=== PATIENT | female | born 1955 | race African-American/Black ===

== ENCOUNTER 2024-06-26 16:25 | Inpatient (IN) | payer OTHER, MEDICAID ==
[~2024-06-26] VITALS: Ht 165.1 cm; Wt 73.6 kg
[2024-06-26 20:27] VITALS: BP 109/46; PULSE 67; RESP 18; TEMP 98.2; O2SAT 99
[2024-06-26 21:00] VITALS: BP 109/46; PULSE 67; RESP 18; TEMP 98.2; O2SAT 99
[2024-06-26] MEDS ORDERED: NITROGLYCERIN 0.4 MG SL TAB SL PRN (21:30)
[2024-06-26] MEDS: SOD CHL 0.45% 1,000 ML IV SCH (21:30)
[2024-06-26] MEDS ORDERED: HYDROMORPHONE HCL 1 MG/ML INJ IV PRN (21:30)
[2024-06-26] MEDS ORDERED: MORPHINE SULFATE INJ 2 MG/ml SYRG IV PRN (21:30)
[2024-06-26 21:39] VITALS: PULSE 67; RESP 18; O2SAT 99
[2024-06-26] MEDS ORDERED: ERGO1CAP12 (22:00)
[2024-06-26] MEDS ORDERED: GABA-339 (22:00)
[2024-06-26] MEDS ORDERED: ATOR10TA52 PO (22:00)
[2024-06-26] MEDS ORDERED: OXYC-963 (22:00)
[2024-06-26 22:37] LABS: Basophils # (auto) 0 10 ^3/uL (0-0.2); Basophils % (auto) 0.5 % (0.0-2.0); Eosinophils # (auto) 0.1 10 ^3/uL (0-0.8); Eosinophils % (auto) 0.9 % (0.0-7.0); Hematocrit 46.5 % (36.0-46.0); Hemoglobin 15.1 g/dL (12.2-16.2); Lymphocytes # (auto) 2.2 10 ^3/uL (0.4-5.4); Lymphocytes % (auto) 35.1 % (10.0-50.0); Mean Corpuscular Hemoglobin 30.9 pg (28.0-32.0); Mean Corpuscular Hgb Conc. 32.4 g/dL (32.0-36.0); Mean Corpuscular Volume 95.3 fL (80.0-100.0); Monocytes # (auto) 0.6 10 ^3/uL (0-1.3); Monocytes % (auto) 9.1 % (0.0-12.0); Neutrophils # (auto) 3.4 10 ^3/uL (1.6-8.6); Neutrophils % (auto) 54.4 % (37.0-80.0); Nucleated Red Blood Cells % 0.1 %; Platelet Count (auto) 275 10^3/uL (140-450); Red Blood Cells 4.88 10^6/uL (4.0-5.20); Red Cell Distribution Width 15.4 % (11.8-14.3); White Blood Cell 6.2 10^3/uL (4.4-10.8)
[2024-06-26 22:48] LABS: Partial Thromboplastin Time 30.6 SEC (24.5-34.5); Prothrombin Time 10.6 sec (9.3-11.8)
[2024-06-26 23:05] LABS: Alanine Aminotransferase 14 U/L (7-40); Albumin 4.6 g/dL (3.2-4.8); Alkaline Phosphatase 88 U/L (46-116); Amylase 42 U/L (30-118); Anion Gap 8 (5-15); BUN/Creatinine Ratio 13.2 (10.0-20.0); Blood Urea Nitrogen 9 mg/dL (9-23); Calcium 9.9 mg/dL (8.7-10.4); Carbon Dioxide 25 mmol/L (20-31); Chloride 106 mmol/L (98-107); Glucose 86 mg/dL (74-106); Sodium 139 mmol/L (136-145)
[2024-06-26 23:06] LABS: Bilirubin, Total 0.6 mg/dL (0.2-1.0); Total Protein 7.1 g/dL (5.7-8.2)
[2024-06-26 23:07] LABS: Aspartate Aminotransferase 8 U/L (13-40); Potassium 3.4 mmol/L (3.5-5.1)
--- NOTE | 2024-06-26 23:08 | DVH ---
INDICATION: abdominal pain TECHNIQUE: Multiple real-time sonographic images were obtained of the right upper quadrant. COMPARISON: None FINDINGS: The liver is normal in size measuring 16.8 cm and demonstrates homogeneous echogenicity without focal mass lesion. There is no intrahepatic or extrahepatic ductal dilatation. The common duct measures 4.6 mm. Multiple mobile gallstones are noted in the gallbladder. The gallbladder wall measures 2.3 mm and is within normal limits. The right kidney measures 10.5 cm and is normal in size, contour, and echogenicity. No hydronephrosis . Visualized pancreas appears unremarkable. IMPRESSION: Cholelithiasis without evidence of acute cholecystitis.
[2024-06-26] MEDS: HYDROMORPHONE HCL 1 MG/ML INJ IV PRN (23:45)
[2024-06-26] MEDS: SUCRALFATE 1 GM TAB PO SCH (23:48)
[2024-06-26] MEDS: cefTRIAXone 1GM/50ML D5W 50 ML IV SCH (23:48)
--- NOTE | 2024-06-27 | DVHHP2 ---
Admitting Diagnosis: Intermittent RUQ abdominal pains- Nausea and poor appetite History of Present Illness 69-year-old late middle-aged female with known history of cholelithiasis, Diverticulosis, Hypertension, hypercholesterolemia and AAA- S/p stent placement is admitted for further eval and management of recurrent multisite abdominal pains which starts from RUQ/epigastric area gnawing type 5 to 7/10 attended with nausea, Poor appetite, nausea, pains gets worse after meal intake with abdominal distention but denies melena or hematochezia. Denies intake of nonsteroidals, dark coffee But admits to have been intake citric acid containing foods like oranges. No known Prior history of peptic ulcer disease melena or rectal bleeding. Besides this she reports pains in LLQ area along with recurrent constipation. She expresses a concern about Acute cholecystitis/diverticulitis foe she has known history of cholelithiasis and diverticulosis. She denies fever chills jaundice, passing dark urine or kelle- colored stools She admits to have been smoking cigarettes-one pack a day for many years She has noticed spotting of blood from internal hemorrhoids. In addition to all above, she reports to her symptoms of pains edema, erythema affecting dorsum of L forefoot. She reports are sharp shooting pains around bases of L first and second toes accompanied by reduced joint movements from local pains. She reports to have known history of gout. She denies drinking alcohol in last several days. Past Medical History Past medical history records: Reviewed Cardiovascular history: Known history of hypertension, no history of acute OK or CAD AAA-status post surgical repair at [facility] in Jul 2023 Respiratory history: Prolonged tobacco use and COPD Gastrointestinal history: GE reflux, chronic gastritis Genitourinary history: No history of renal insufficiency Endocrine history: Hypercholesterolemia Neurology history: No history of CVA Musculoskeletal history: Arthritis of bilateral lower extremity History of gouty arthritis, Chronic back pains-DJD of LS spines Hemato-oncology history: History of chronic anemia, B12 deficiency Psychiatric history: Depression makes with anxiety Past Surgical History Abdominal aortic aneurysm repair Social History Homemaker, , lives by herself in [place] History of smoking: Cigarettes: Active smoker History of smoking E cigarettes: Denies E cigarette smoking History of smoking marijuana: denies marijuana smoking History of drinking alcohol: Denies alcohol abuse History of substance abuse:Denies substance abuse Patient Family History: Patient reports no known family medical history. Allergies: Coded Allergies: NO KNOWN ALLERGIES (Unverified , 06/26/24) Home Meds Reported Medications Atorvastatin Calcium (ATORVASTATIN CALCIUM) 10 Mg Tab, 1 TAB PO 06/26/24 Oxycodone W/ Acetaminophen (Oxycodone/Acetaminophen 10-300 mg) 1 Tab Tab 06/26/24 Gabapentin (Gabapentin) 600 Mg Tab 06/26/24 Ergocalciferol (Vitamin D) 50,000 Unit Cap, 1 06/26/24 Current Medications Current Medications Medications (Trade) Dose Ordered Sig/Tamara Route PRN Reason Start Time Stop Time Status Last Admin Atorvastatin Calcium (Lipitor) 10 mg DAILY@DINNER PO 06/27/24 17:30 06/27/24 17:35 Hydrocortisone Sodium Succinate (Solu-CORTEF INJECTION) 50 mg Q8HR IV 06/27/24 20:30 06/27/24 21:50 DC 06/27/24 20:42 Ketorolac Tromethamine (Toradol Injection) 15 mg Q6HPRN PRN IV SEVERE PAIN (7-10 PAIN SCALE) 06/27/24 20:45 06/27/24 22:58 DC Potassium Chloride 100 ml @ 50 mls/hr BID IV 06/27/24 22:00 06/27/24 21:53 DC Hydrocortisone Sodium Succinate (Solu-CORTEF INJECTION) 50 mg Q8HR IV 06/28/24 06:00 06/28/24 13:44 Ceftriaxone Sodium 50 ml @ 100 mls/hr 1100,2300 IV 06/27/24 23:00 06/28/24 10:12 Potassium Chloride 100 ml @ 50 mls/hr 1130,2330 IV 06/27/24 23:30 06/28/24 11:18 Ketorolac Tromethamine (Toradol Injection) 15 mg Q6HPRN PRN IV MILD PAIN (1-3 PAIN SCALE) 06/27/24 23:00 07/02/24 20:44 06/28/24 13:43 Sodium Chloride 1,000 ml @ 40 mls/hr Q24H IV 06/28/24 16:30 UNV Valsartan (Diovan) 160 mg DAILY@BREAKFAST PO 06/29/24 07:30 UNV Hydrochlorothiazide (hydroCHLOROthiazide TABLET) 12.5 mg DAILY PO 06/29/24 10:00 UNV Clonidine HCl (Catapres Tablet) UD PRN PO SBP>160 06/28/24 16:30 UNV Valsartan (Diovan) 160 mg DAILY@DINNER PO 06/28/24 18:00 UNV Review of Systems Constitutional: Reports easy tiredness, denies fever chills weight loss HEENT: Denies headache/conjunctival/ENT pains or congestion, Denies hoarse voice, hearing or visual deficit Neck: Denies cervical spine local/radicular pains, denies goiters/stridor Denies stiffness spasms, reduced ROM, RS: Denies chest congestion, cough, wheezing, SOB, pleuritic chest pains CVS: Denies angina, palpitation, SOB, edema, orthopnea, PND GI: Reports epigastric/RUQ LLQ abdominal pains, tenderness,loss of appetite, N/V/D, Denies melena, GI bleeding,constipation, : Denies dysuria, flank pains, frequency, hematuria, Denies passing foul odor/cloudy turbid urine, nocturia MS: Reports chronic back pains, spasms, stiffness, radicular pains Denies generalized myalgias/muscle weakness EXTs: Reports edema/pain tenderness, erythema affecting dorsum of L forefoot, No open wounds, discoloration, radicular pains NEURO: Denies hypersomnolence, confused mental status, Denies focal weakness or seizures/tremors/myoclonic jerks SKIN: Denies rashes or open ulcerated wound ENDOCRINE: Denies polyuria, polydipsia, denies intolerance to heat and cold HEM/LYMPH: Denies easy tiredness, bruising, lymphadenopathy ALLERGY: Denies allergic reactions Psychiatry: Reports anxiety or depression without suicidal ideation disorder Otherwise the Review of Systems is Negative as per History & Physical Interview: Yes Vital Signs Vital Signs Date Time Temp Pulse Resp B/P (MAP) Pulse Ox O2 Delivery O2 Flow Rate FiO2 06/28/24 16:06 80 17 150/80 06/28/24 13:00 98.0 90 98.0 06/28/24 08:00 Room Air* 0 21 Physical Exam Vital Signs Date Time Temp Pulse Resp B/P (MAP) Pulse Ox O2 Delivery O2 Flow Rate FiO2 06/26/24 20:27 98.2 67 18 109/46 (67) 94 Room air 21 06/26/24 23:45 67 18 127/77 (94) 93 Room air 21 General appearance: Well-developed, mal-nourished late middle-aged female Reports to have abdominal pains, nausea, generally weak NAD Awake alert oriented x3 no respiratory distress Head: Normocephalic nontraumatic Eyes: EOMI, YOLANDE, sclera nonicteric, conjunctive- pale ENT: No congestion, NSL bilateral symmetrical, oral mucosa dry Neck: Supple, carotid upstroke +2, trachea midline, JVD-3 cm, C spine- Full ROM No thyroid or lymph node , no use of sternomastoid muscle Chest: Bilateral symmetrical expansions, No costochondral tenderness Breasts: I exam - Bilateral symmetrical, Pexam - deferred Lungs: clear breath sounds all over except reduced at bases CVS: PMI-1 cm medial to L MCL in fifth ICS , S1- S2 NSR no S3 GI: Abdomen soft, non-obese, bowel sounds normoactive RUQ/epigastric/LLQ tenderness, no rebound tenderness No hepatosplenomegaly, no mass no hernia , : No CVA tenderness, no bladder mass palpable, genitalia-NE SKIN: Turgor dry, color pink, no rash, no icterus, No varicosity, no ulcers or wounds EXTs: L foot- edema_2, erythema, pain tenderness over forefoot Affecting bases of first and second toe distal pulses +1 capillary refill <2 seconds, No open wounds JOINTS; Reduced range of motion at major joints BACK: Lumbosacral paraspinal muscle tenderness, LYMPH NODES: No cervical, axillary or inguinal lymph nodes Neuro: Awake alert oriented 4, coherent, all cognitives- intact No pronator drift, no focal motor deficit, No focal sensory deficit, DTR +2, gait steady PSYCH: Affect mildly depressed-denies suicidal ideation Results Labs Test 06/27/24 05:43 06/27/24 02:05 06/26/24 22:10 Range/Units Erythrocyte Sedimentation Rate 8 0-20 mm/hr Sodium Level 140 136-145 mmol/L Potassium Level 3.4 L 3.5-5.1 mmol/L Chloride Level 105 98-107 mmol/L Carbon Dioxide Level 27 20-31 mmol/L Anion Gap 8 5-15 Blood Urea Nitrogen 10 9-23 mg/dL Creatinine 0.64 0.550-1.02 mg/dL Glomerular Filtration Rate Calc 95 >90 mL/min BUN/Creatinine Ratio 15.6 10.0-20.0 Serum Glucose 88 74-106 mg/dL Hemoglobin A1c 5.3 <5.7 % A1C Uric Acid 7.7 3.1-7.8 mg/dL Calcium Level 9.6 8.7-10.4 mg/dL Phosphorus Level 4.0 2.4-5.1 mg/dL Magnesium Level 2.0 1.6-2.6 mg/dL Total Bilirubin 0.8 0.2-1.0 mg/dL Aspartate Amino Transferase (AST) < 8 L 13-40 U/L Alanine Aminotransferase (ALT) 15 7-40 U/L Alkaline Phosphatase 86 46-116 U/L Total Protein 6.9 5.7-8.2 g/dL Albumin 4.5 3.2-4.8 g/dL Triglycerides Level 137 < 150 mg/dL Cholesterol Level 159 < 200 mg/dL LDL Cholesterol 77 < 100 mg/dL HDL Cholesterol 61 H 40-59 mg/dL Vitamin B12 Level 279 211-911 pg/mL Urine Color Light-yellow Yellow Urine Clarity Clear Clear Urine pH 5.5 5.0-9.0 Urine Specific [place] 1.010 1.001-1.035 Urine Protein Negative Negative Urine Ketones Negative Negative Urine Blood Negative Negative /uL Urine Nitrite Negative Negative Urine Bilirubin Negative Negative Urine Urobilinogen Normal Negative mg/dL Urine Leukocyte Esterase Negative Negative /uL Urine RBC <1 0 - 4 /hpf Urine Microscopic WBC 4 0-5 /HPF Urine Squamous Epithelial Cells Few <5 /hpf Urine Bacteria Few H None Seen /hpf Urine Glucose Normal Normal mg/dL White Blood Count 6.2 4.4-10.8 10^3/uL Red Blood Count 4.88 4.0-5.20 10^6/uL Hemoglobin 15.1 12.2-16.2 g/dL Hematocrit 46.5 H 36.0-46.0 % Mean Corpuscular Volume 95.3 80.0-100.0 fL Mean Corpuscular Hemoglobin 30.9 28.0-32.0 pg Mean Corpuscular Hemoglobin Concent 32.4 32.0-36.0 g/dL Red Cell Distribution Width 15.4 H 11.8-14.3 % Platelet Count 275 140-450 10^3/uL Mean Platelet Volume 6.8 L 6.9-10.8 fL Neutrophils (%) (Auto) 54.4 37.0-80.0 % Lymphocytes (%) (Auto) 35.1 10.0-50.0 % Monocytes (%) (Auto) 9.1 0.0-12.0 % Eosinophils (%) (Auto) 0.9 0.0-7.0 % Basophils (%) (Auto) 0.5 0.0-2.0 % Neutrophils # (Auto) 3.4 1.6-8.6 10 ^3/uL Lymphocytes # (Auto) 2.2 0.4-5.4 10 ^3/uL Monocytes # (Auto) 0.6 0-1.3 10 ^3/uL Eosinophils # (Auto) 0.1 0-0.8 10 ^3/uL Basophils # (Auto) 0 0-0.2 10 ^3/uL Nucleated Red Blood Cells 0.1 % Prothrombin Time 10.6 9.3-11.8 sec Prothrombin Time INR 1.00 0.9-1.15 Activated Partial Thromboplast Time 30.6 24.5-34.5 SEC Amylase Level 42 30-118 U/L Primary Diagnosis 1. Acute RUQ abdominal pains a. Suspect symptomatic Cholelithiasis 2. Acute gastritis/peptic ulcer disease 3. Rule out diverticulitis Admitting Diagnosis: 1. Acute RUQ abdominal pains a. Suspect symptomatic Cholelithiasis 2. Acute gastritis/peptic ulcer disease 3. Rule out diverticulitis 4. Moderate to severe hypovolemia 5. Hypokalemia YANN FLORES MD Jun 27, 2024 00:00
[2024-06-27] MEDS: metroNIDAZOLE 500MG/100ML 100 ML IV SCH (00:33)
[2024-06-27 01:00] VITALS: BP 127/77; PULSE 67; RESP 18; TEMP 98.1; O2SAT 90
[2024-06-27 03:11] LABS: Urine Bacteria FEW /hpf (None Seen); Urine Blood Negative /uL (Negative); Urine Clarity Clear (Clear); Urine Color Light-Yellow (Yellow); Urine Protein, UAD Negative (Negative); Urine Squamous Epithelial Cell FEW /hpf (<5); Urine Urobilinogen Normal (Negative); Urine WBC 4 /HPF (0-5); Urine pH 5.5 (5.0-9.0)
[2024-06-27 05:00] VITALS: BP 113/62; PULSE 84; RESP 18; TEMP 97.8; O2SAT 95
[2024-06-27] MEDS: GABAPENTIN 300 MG CAP PO SCH (05:51)
[2024-06-27 07:35] LABS: Alanine Aminotransferase 15 U/L (7-40); Albumin 4.5 g/dL (3.2-4.8); Alkaline Phosphatase 86 U/L (46-116); Anion Gap 8 (5-15); BUN/Creatinine Ratio 15.6 (10.0-20.0); Blood Urea Nitrogen 10 mg/dL (9-23); Calcium 9.6 mg/dL (8.7-10.4); Carbon Dioxide 27 mmol/L (20-31); Chloride 105 mmol/L (98-107); Cholesterol 159 mg/dL (< 200); Glucose 88 mg/dL (74-106); LDL Cholesterol 77 mg/dL (< 100); Sodium 140 mmol/L (136-145); Triglycerides 137 mg/dL (< 150)
[2024-06-27 07:36] LABS: Total Protein 6.9 g/dL (5.7-8.2)
[2024-06-27 07:39] LABS: Bilirubin, Total 0.8 mg/dL (0.2-1.0)
[2024-06-27 07:44] LABS: Aspartate Aminotransferase < 8 U/L (13-40); HDL Cholesterol 61 mg/dL (40-59); Potassium 3.4 mmol/L (3.5-5.1)
[2024-06-27 09:00] VITALS: BP 132/82; PULSE 65; RESP 17; TEMP 98.4; O2SAT 95
[2024-06-27] MEDS: ASPirin-EC 81 mg tab PO SCH (10:10)
[2024-06-27] MEDS: PANTOPRAZOLE 40 MG/10 ML VIAL INJ IV SCH (10:10)
[2024-06-27] MEDS: CALCIUM W/VIT D (600MG/400IU) TAB PO SCH (10:10)
[2024-06-27] MEDS: VALSARTAN 80 MG TAB PO SCH (10:12)
[2024-06-27] MEDS: ONDANSETRON HCL 4 MG/2 ML VIAL IV PRN (12:18)
[2024-06-27 13:00] VITALS: BP 108/62; PULSE 80; RESP 18; TEMP 98; O2SAT 94
--- NOTE | 2024-06-27 15:05 | DVH ---
Exam: CT CT ABD PELVIS W CON-ORAL IV History: ABDOMINAL PAIN COMPARISON: None Technique: Multidetector spiral CT of the abdomen and pelvis was performed from lung bases to pubic s ymphysis. Intravenous contrast was administered during this examination. Portal venous imaging was obtained. Axial, coronal and sagittal multiplanar reformats were performed by the technologist on a separate workstation. Radiation Dose : 1. Abdomen/Pelvis: CTDIvol 13.73mGy, DLP 690.17 mGy*cm. CONTRAST: Type of contrast: Omnipaque 300 Contrast injected: 100 ml Contrast ingested: 50 ml Findings: Lung Bases: No acute or significant lung base finding. Normal heart size. No pleural or pericardial effusion. Mild patchy scarring left lung base. Mild cardiomegaly. No consolidation. Liver: The liver is normal in size. No focal lesions. Normal hepatic vascular enhancement. Gallbladder and Biliary Tree: Gallstones Spleen: Unremarkable Pancreas: The pancreas is normal in appearance without focal lesions or abnormal enhancement. Adrenal Glands: Mild prominence of the adrenal head of the left adrenal gland. Kidneys: No hydronephrosis. 1.5 cm lower pole left renal cyst. No renal calculi. Bladder: Unremarkable Bowel: Severe diverticulosis of the sigmoid colon. No diverticulitis. No pelvic abscess. No bowel obs truction. Ascites: Absent Lymphadenopathy: No mesenteric, retroperitoneal or periportal lymphadenopathy. Abdominal Wall and Mesentery: Unremarkable. Vasculature: Aortic stent visualized. Distal abdominal aortic aneurysm beginning infrarenal in locati on. No obvious endoleak. [place] aneurysm measures 5.7 cm in maximal dimension. Pelvic Organs: Unremarkable Musculoskeletal: Postsurgical changes of the spine. No hardware loosening. Good alignment of the orth opedic hardware. IMPRESSION: 1. Severe sigmoid diverticulosis. No diverticulitis Abdominal aortic stent seen [place] aneurysm measures 5.7 cm without obvious endoleak. No bowel obstruction No abnormal lymphadenopathy No abscess Gallstones Radiation optimization: All CT scans at this facility use at least one of these dose optimization geremias hniques: automated exposure control mA and/or kV adjustment per patient size (includes targeted exam s where dose is matched to clinical indication) or iterative reconstruction.
[2024-06-27 17:00] VITALS: BP 110/66; PULSE 83; RESP 18; TEMP 98.2; O2SAT 92
[2024-06-27] MEDS: ATORVASTATIN 20 MG TAB PO SCH (17:35)
[2024-06-27] MEDS: HYDROCORTISONE SOD SUCC 100 MG/2ML INJ VIAL IV SCH (20:42)
--- NOTE | 2024-06-27 20:42 | DVHPN2 ---
Progress Note - Dictate Date Seen: Jun 27, 2024 vital signs Vital Sign Date Time Temp Pulse Resp B/P (MAP) Pulse Ox O2 Delivery O2 Flow Rate FiO2 06/27/24 18:05 80 18 110/66 06/27/24 17:00 98.2 92 98.2 06/27/24 08:00 Room Air* 0 21 Total Intake and Output 06/26/24 06/26/24 06/27/24 15:00 23:00 07:00 Intake Total 900 ml Balance 900 ml medications Current Medications Medications Dose Ordered Sig/Tamara Route Start Time Stop Time Status Last Admin Dose Admin Nitroglycerin 0.4 mg Q5MINP PRN SL 06/26/24 21:30 Sodium Chloride 1,000 ml @ 60 mls/hr [id number] IV 06/26/24 21:30 06/26/24 21:30 Hydromorphone HCl 0.6 mg Q4HPRN PRN IV 06/26/24 21:30 Hydromorphone HCl 1 mg Q4HPRN PRN IV 06/26/24 21:30 06/27/24 17:35 Ondansetron HCl 4 mg Q6HPRN PRN IV 06/26/24 21:30 06/27/24 12:18 Ceftriaxone Sodium 50 ml @ 100 mls/hr Q12HR IV 06/26/24 23:30 06/27/24 10:13 Metronidazole 100 ml @ 100 mls/hr Q8HR IV 06/26/24 23:30 06/27/24 14:06 Valsartan 160 mg DAILY PO 06/27/24 10:00 06/27/24 10:12 Pantoprazole Sodium 40 mg DAILY IV 06/27/24 10:00 06/27/24 10:10 Sucralfate 1 gm Q6HR PO 06/27/24 00:00 06/27/24 17:36 Atorvastatin Calcium 10 mg DAILY@DINNER PO 06/27/24 17:30 06/27/24 17:35 Aspirin 81 mg DAILY PO 06/27/24 10:00 06/27/24 10:10 Gabapentin 600 mg TID PO 06/27/24 06:00 06/27/24 13:58 Calcium/Vitamin D 1 tab BIDWM PO 06/27/24 08:00 06/27/24 10:10 laboratory and microbiology Laboratory Tests 06/27/24 05:43 06/26/24 22:10 Test 06/27/24 05:43 Range/Units Serum Glucose 88 74-106 mg/dL YANN FLORES MD Jun 27, 2024 20:42
[2024-06-27] MEDS ORDERED: KETOROLAC TROMETH 30 MG/ML 1ML VIAL IV PRN (20:45)
[2024-06-27 21:00] VITALS: BP 101/60; PULSE 81; RESP 18; TEMP 97.8; O2SAT 91
[2024-06-27 21:09] LABS: Erythrocyte Sedimentation Rate 8 mm/hr (0-20)
[2024-06-27] MEDS ORDERED: POTASSIUM CHL 20MEQ/100ML 100 ML IV SCH (22:00)
[2024-06-27] MEDS: cefTRIAXone 1GM/50ML D5W 50 ML IV SCH (23:01)
[2024-06-27] MEDS: POTASSIUM CHL 20MEQ/100ML 100 ML IV SCH ×2 (23:57)
[2024-06-28] VITALS (7 sets, daily range): BP systolic 106–179; BP diastolic 66–90; PULSE 70–107; RESP 16–18; TEMP 97.6–98.1; O2SAT 90–99
--- NOTE | 2024-06-28 05:16 | DVH ---
XY L FOOT 3 VIEW XRAY INDICATION: aCUTE GOUT, r/O FRACTURE OF GREAT OR 2ND/3RD TOES TECHNICAL DATA: Frontal, oblique and lateral views were obtained of the left foot. COMPARISON: None FINDINGS: No fracture is identified. Joint spaces are maintained. Alignment is anatomic. The hallux sesamoids a ppear normal. Soft tissues are within normal limits. IMPRESSION: No acute fracture or dislocation of the left foot.
[2024-06-28] MEDS: HYDROCORTISONE SOD SUCC 100 MG/2ML INJ VIAL IV SCH (05:40)
[2024-06-28] MEDS: KETOROLAC TROMETH 30 MG/ML 1ML VIAL IV PRN (13:43)
[2024-06-28] MEDS: SOD CHL 0.45% 1,000 ML IV SCH (16:30)
[2024-06-28] MEDS: VALSARTAN 80 MG TAB PO SCH (17:17)
[2024-06-28] MEDS: cloNIDine HCL 0.1 MG TAB PO PRN (17:18)
[2024-06-28] MEDS: CYANOCOBALAMIN (B-12) 1000 MCG/1 ML VIAL SUBCUT ONE (17:19)
[2024-06-28] MEDS: NICOTINE 14 MG/24HR TOPICAL PATCH TD ONE (17:23)
--- NOTE | 2024-06-28 17:53 | DVHCONRES ---
Date Seen: Jun 28, 2024 Resident Creating Document: NEEL COLEMAN RESIDENT Referring Physician Collin LANDIN Reason for Consultation abdominal pain History of Present Illness Patient is 69-year-old female with known medical history of cholelithiasis, diverticulitis, diverticulosis, hypercholesterolemia, Chronic obstructive pulmonary disease, abdominal aortic aneurysm, GERD, chronic gastritis, gout, chronic back pain on opiate who presented to the hospital with epigastric abdominal pain, which is sharp in nature, associated with food intake, usually epigastric pain radiating to right and left upper quadrant, associated with weight loss, poor appetite and gastric distention. Patient denied fever, chills, discoloration of skin, chest pain, shortness of breath, any other sympto ms. GI consultation has been done for evaluation abdominal pain. CT of the abdomen showed sigmoid diverticulosis, abdominal aortic stent, [place] aneurysm measuring 5.7, no abscess or small-bowel obstruction with cholelithiasis. Past surgical history: Abdominal aortic aneurysm repair Allergic: No Social history: Lives in house, active smoker, denying alcohol use or any ill icit substance use. Family History: Patient reports no known family medical history. Allergies: Coded Allergies: NO KNOWN ALLERGIES (Unverified , 06/26/24) Home Meds Reported Medications Atorvastatin Calcium (ATORVASTATIN CALCIUM) 10 Mg Tab, 1 TAB PO 06/26/24 Oxycodone W/ Acetaminophen (Oxycodone/Acetaminophen 10-300 mg) 1 Tab Tab 06/26/24 Gabapentin (Gabapentin) 600 Mg Tab 06/26/24 Ergocalciferol (Vitamin D) 50,000 Unit Cap, 1 06/26/24 Current Medications Current Medications Medications (Trade) Dose Ordered Sig/Tamara Route PRN Reason Start Time Stop Time Status Last Admin Hydrocortisone Sodium Succinate (Solu-CORTEF INJECTION) 50 mg Q8HR IV 06/27/24 20:30 06/27/24 21:50 DC 06/27/24 20:42 Ketorolac Tromethamine (Toradol Injection) 15 mg Q6HPRN PRN IV SEVERE PAIN (7-10 PAIN SCALE) 06/27/24 20:45 06/27/24 22:58 DC Potassium Chloride 100 ml @ 50 mls/hr BID IV 06/27/24 22:00 06/27/24 21:53 DC Hydrocortisone Sodium Succinate (Solu-CORTEF INJECTION) 50 mg Q8HR IV 06/28/24 06:00 06/28/24 13:44 Ceftriaxone Sodium 50 ml @ 100 mls/hr 1100,2300 IV 06/27/24 23:00 06/28/24 10:12 Potassium Chloride 100 ml @ 50 mls/hr 1130,2330 IV 06/27/24 23:30 06/28/24 11:18 Ketorolac Tromethamine (Toradol Injection) 15 mg Q6HPRN PRN IV MILD PAIN (1-3 PAIN SCALE) 06/27/24 23:00 07/02/24 20:44 06/28/24 13:43 Sodium Chloride 1,000 ml @ 40 mls/hr Q24H IV 06/28/24 16:30 Valsartan (Diovan) 160 mg DAILY@BREAKFAST PO 06/29/24 07:30 06/28/24 16:55 DC Hydrochlorothiazide (hydroCHLOROthiazide TABLET) 12.5 mg DAILY PO 06/29/24 10:00 Clonidine HCl (Catapres Tablet) UD PRN PO SBP>160 06/28/24 16:30 06/28/24 17:18 Valsartan (Diovan) 160 mg DAILY@DINNER PO 06/28/24 18:00 06/28/24 17:17 Review of Systems Patient complaining of intermittent epigastric abdominal pain which radiated to right and left upper quadrant Vital Signs Vital Signs Date Time Temp Pulse Resp B/P (MAP) Pulse Ox O2 Delivery O2 Flow Rate FiO2 06/28/24 17:18 179/50 06/28/24 17:00 98.1 107 18 93 98.1 06/28/24 08:00 Room Air* 0 21 Physical Exam General Appearance: Cooperative. Well developed. Well nourished. NAD Head Exam: Normal inspection Neck Exam: Normal inspection. Non-tender. Normal alignment Pulmonary/Respiratory: Chest non-tender. Clear bilateral breath sounds Cardiovascular/Chest: Regular rate and rhythm. No murmurs. No JVD. Peripheral Pulses: 2+ Radial (R). 2+ Radial (L). 2+ Pedal (R). 2+ Pedal (L) Abdominal Exam: Normal bowel sounds. Soft. Nontender. No hepatospenomegaly. No masses Ankle Exam: Negative ankle edema Lower extremities: Negative lower extremity edema Neuro/Mental Status: A&O x4. Coherent Thoughts/Psych: Normal thought pattern. Appropriate mood and affect. Good judgement and insight Appearance: In no acute distress Skin Exam: Normal inspection. Normal color. Warm. Dry Labs/Diagnostic Data Labs Test 06/27/24 05:43 06/27/24 02:05 06/26/24 22:10 Range/Units Erythrocyte Sedimentation Rate 8 0-20 mm/hr Sodium Level 140 136-145 mmol/L Potassium Level 3.4 L 3.5-5.1 mmol/L Chloride Level 105 98-107 mmol/L Carbon Dioxide Level 27 20-31 mmol/L Anion Gap 8 5-15 Blood Urea Nitrogen 10 9-23 mg/dL Creatinine 0.64 0.550-1.02 mg/dL Glomerular Filtration Rate Calc 95 >90 mL/min BUN/Creatinine Ratio 15.6 10.0-20.0 Serum Glucose 88 74-106 mg/dL Hemoglobin A1c 5.3 <5.7 % A1C Uric Acid 7.7 3.1-7.8 mg/dL Calcium Level 9.6 8.7-10.4 mg/dL Phosphorus Level 4.0 2.4-5.1 mg/dL Magnesium Level 2.0 1.6-2.6 mg/dL Total Bilirubin 0.8 0.2-1.0 mg/dL Aspartate Amino Transferase (AST) < 8 L 13-40 U/L Alanine Aminotransferase (ALT) 15 7-40 U/L Alkaline Phosphatase 86 46-116 U/L Total Protein 6.9 5.7-8.2 g/dL Albumin 4.5 3.2-4.8 g/dL Triglycerides Level 137 < 150 mg/dL Cholesterol Level 159 < 200 mg/dL LDL Cholesterol 77 < 100 mg/dL HDL Cholesterol 61 H 40-59 mg/dL Vitamin B12 Level 279 211-911 pg/mL Urine Color Light-yellow Yellow Urine Clarity Clear Clear Urine pH 5.5 5.0-9.0 Urine Specific [place] 1.010 1.001-1.035 Urine Protein Negative Negative Urine Ketones Negative Negative Urine Blood Negative Negative /uL Urine Nitrite Negative Negative Urine Bilirubin Negative Negative Urine Urobilinogen Normal Negative mg/dL Urine Leukocyte Esterase Negative Negative /uL Urine RBC <1 0 - 4 /hpf Urine Microscopic WBC 4 0-5 /HPF Urine Squamous Epithelial Cells Few <5 /hpf Urine Bacteria Few H None Seen /hpf Urine Glucose Normal Normal mg/dL White Blood Count 6.2 4.4-10.8 10^3/uL Red Blood Count 4.88 4.0-5.20 10^6/uL Hemoglobin 15.1 12.2-16.2 g/dL Hematocrit 46.5 H 36.0-46.0 % Mean Corpuscular Volume 95.3 80.0-100.0 fL Mean Corpuscular Hemoglobin 30.9 28.0-32.0 pg Mean Corpuscular Hemoglobin Concent 32.4 32.0-36.0 g/dL Red Cell Distribution Width 15.4 H 11.8-14.3 % Platelet Count 275 140-450 10^3/uL Mean Platelet Volume 6.8 L 6.9-10.8 fL Neutrophils (%) (Auto) 54.4 37.0-80.0 % Lymphocytes (%) (Auto) 35.1 10.0-50.0 % Monocytes (%) (Auto) 9.1 0.0-12.0 % Eosinophils (%) (Auto) 0.9 0.0-7.0 % Basophils (%) (Auto) 0.5 0.0-2.0 % Neutrophils # (Auto) 3.4 1.6-8.6 10 ^3/uL Lymphocytes # (Auto) 2.2 0.4-5.4 10 ^3/uL Monocytes # (Auto) 0.6 0-1.3 10 ^3/uL Eosinophils # (Auto) 0.1 0-0.8 10 ^3/uL Basophils # (Auto) 0 0-0.2 10 ^3/uL Nucleated Red Blood Cells 0.1 % Prothrombin Time 10.6 9.3-11.8 sec Prothrombin Time INR 1.00 0.9-1.15 Activated Partial Thromboplast Time 30.6 24.5-34.5 SEC Amylase Level 42 30-118 U/L Assessment Acute epigastric pain Cholelithiasis Ruled out acute cholecystitis ? Acute gastritis ? Peptic ulcer disease GERD Chronic obstructive pulmonary disease no exacerbation Hypokalemia Plan/recommendation Dr Rodriguez -NPO from midnight, possible EGD tomorrow. -continue IV Protonix 40 mg IV b.i.d., Carafate 1 g q.i.d.. -gallbladder showed gallstone, no acute cholecystitis : Surgery consultation has been done -stool occult pending -amylase level within reference range 42. -we will continue to monitor this patient. Plan discussed with: Patient, Other (RN) NEEL COLEMAN RESIDENT Jun 28, 2024 17:53
[2024-06-29] VITALS (7 sets, daily range): BP systolic 129–164; BP diastolic 74–92; PULSE 63–79; RESP 16–18; TEMP 97.5–97.9; O2SAT 90–96
[2024-06-29] MEDS ORDERED: VALSARTAN 80 MG TAB PO SCH (07:30)
[2024-06-29] MEDS: hydroCHLOROthiazide 25 MG TAB PO SCH (08:17)
[2024-06-29] MEDS ORDERED: LIDOCAINE VISCOUS 2% 15ML UD ONE (09:29)
[2024-06-29] MEDS ORDERED: SODIUM CHLORIDE LOCK 10 ML ONE (09:29)
[2024-06-29] MEDS ORDERED: MIDAZOLAM HCL 5 MG/ML-1ML VIAL ONE (09:29)
[2024-06-29] MEDS ORDERED: fentaNYL CITRATE 100 MCG/2 ML VL ONE (09:30)
[2024-06-29] MEDS ORDERED: diphenhdrAMINE HCL 50 MG/1 ML VL ONE (09:30)
--- NOTE | 2024-06-29 11:17 | DVHCONRES ---
Date Seen: Jun 29, 2024 Resident Creating Document: ESVIN KULKARNI Jr., MD Referring Physician miley Reason for Consultation abd pain/aaa History of Present Illness Patient is 69-year-old female with known medical history of cholelithiasis, diverticulitis, diverticulosis, hypercholesterolemia, Chronic obstructive pulmonary disease, abdominal aortic aneurysm, GERD, chronic gastritis, gout, chr onic back pain on opiate who presented to the hospital with epigastric abdominal pain, which is sharp in nature, associated with food intake, usually epigastric pain radiating to right and left upper quadrant, associated with weight loss, poor appetite and gastric distention. Patient denied fever, chills, discoloration of skin, chest pain, shortness of breath, any other symptoms. GI consultation has been done for evaluation abdominal pain. CT of the abdomen showed sigmoid diverticulosis, abdominal aortic stent, [place] aneurysm measuring 5.7, no abscess or small-bowel obstruction with cholelithiasis. Patient continues to smoke as well as he has drink on a daily basis. Since being in the hospital she states her abdominal discomfort has improved. She denies any claudication or rest pain symptoms. Past Medical History cholelithiasis, diverticulitis, diverticulosis, hypercholesterolemia, Chronic obstructive pulmonary disease, abdominal aortic aneurysm, GERD, chronic gastritis, gout, chronic back pain on opiate Past Surgical History EVAR Family History: Patient reports no known family medical history. Social History Does smoke and drink alcohol daily. Allergies: Coded Allergies: NO KNOWN ALLERGIES (Unverified , 06/26/24) Home Meds Reported Medications Atorvastatin Calcium (ATORVASTATIN CALCIUM) 10 Mg Tab, 1 TAB PO 06/26/24 Oxycodone W/ Acetaminophen (Oxycodone/Acetaminophen 10-300 mg) 1 Tab Tab 06/26/24 Gabapentin (Gabapentin) 600 Mg Tab 06/26/24 Ergocalciferol (Vitamin D) 50,000 Unit Cap, 1 06/26/24 Current Medications Current Medications Medications (Trade) Dose Ordered Sig/Tamara Route PRN Reason Start Time Stop Time Status Last Admin Sodium Chloride 1,000 ml @ 40 mls/hr Q24H IV 06/28/24 16:30 Valsartan (Diovan) 160 mg DAILY@BREAKFAST PO 06/29/24 07:30 06/28/24 16:55 DC Hydrochlorothiazide (hydroCHLOROthiazide TABLET) 12.5 mg DAILY PO 06/29/24 10:00 06/29/24 08:17 Clonidine HCl (Catapres Tablet) UD PRN PO SBP>160 06/28/24 16:30 06/28/24 17:18 Valsartan (Diovan) 160 mg DAILY@DINNER PO 06/28/24 18:00 06/28/24 17:17 Review of Systems All systems reviewed are negative other than positive findings in HPI. Vital Signs Vital Signs Date Time Temp Pulse Resp B/P (MAP) Pulse Ox O2 Delivery O2 Flow Rate FiO2 06/29/24 10:38 70 16 130/72 06/29/24 08:47 97.6 96 97.6 06/29/24 08:00 Room Air* 0 21 Physical Exam Head eyes ears nose and throat exam eyes are nonicteric conjunctiva was pink neck was supple no JVD no lymphadenopathy no carotid bruits lungs are clear to auscultation heart was rate and rhythm abdomen was soft nontender with no pulsatile abdominal masses bruits lower extremities palpable femoral and pedal pulses. Labs/Diagnostic Data Labs Test 06/27/24 05:43 06/27/24 02:05 06/26/24 22:10 Range/Units Erythrocyte Sedimentation Rate 8 0-20 mm/hr Sodium Level 140 136-145 mmol/L Potassium Level 3.4 L 3.5-5.1 mmol/L Chloride Level 105 98-107 mmol/L Carbon Dioxide Level 27 20-31 mmol/L Anion Gap 8 5-15 Blood Urea Nitrogen 10 9-23 mg/dL Creatinine 0.64 0.550-1.02 mg/dL Glomerular Filtration Rate Calc 95 >90 mL/min BUN/Creatinine Ratio 15.6 10.0-20.0 Serum Glucose 88 74-106 mg/dL Hemoglobin A1c 5.3 <5.7 % A1C Uric Acid 7.7 3.1-7.8 mg/dL Calcium Level 9.6 8.7-10.4 mg/dL Phosphorus Level 4.0 2.4-5.1 mg/dL Magnesium Level 2.0 1.6-2.6 mg/dL Total Bilirubin 0.8 0.2-1.0 mg/dL Aspartate Amino Transferase (AST) < 8 L 13-40 U/L Alanine Aminotransferase (ALT) 15 7-40 U/L Alkaline Phosphatase 86 46-116 U/L Total Protein 6.9 5.7-8.2 g/dL Albumin 4.5 3.2-4.8 g/dL Triglycerides Level 137 < 150 mg/dL Cholesterol Level 159 < 200 mg/dL LDL Cholesterol 77 < 100 mg/dL HDL Cholesterol 61 H 40-59 mg/dL Vitamin B12 Level 279 211-911 pg/mL Urine Color Light-yellow Yellow Urine Clarity Clear Clear Urine pH 5.5 5.0-9.0 Urine Specific [place] 1.010 1.001-1.035 Urine Protein Negative Negative Urine Ketones Negative Negative Urine Blood Negative Negative /uL Urine Nitrite Negative Negative Urine Bilirubin Negative Negative Urine Urobilinogen Normal Negative mg/dL Urine Leukocyte Esterase Negative Negative /uL Urine RBC <1 0 - 4 /hpf Urine Microscopic WBC 4 0-5 /HPF Urine Squamous Epithelial Cells Few <5 /hpf Urine Bacteria Few H None Seen /hpf Urine Glucose Normal Normal mg/dL White Blood Count 6.2 4.4-10.8 10^3/uL Red Blood Count 4.88 4.0-5.20 10^6/uL Hemoglobin 15.1 12.2-16.2 g/dL Hematocrit 46.5 H 36.0-46.0 % Mean Corpuscular Volume 95.3 80.0-100.0 fL Mean Corpuscular Hemoglobin 30.9 28.0-32.0 pg Mean Corpuscular Hemoglobin Concent 32.4 32.0-36.0 g/dL Red Cell Distribution Width 15.4 H 11.8-14.3 % Platelet Count 275 140-450 10^3/uL Mean Platelet Volume 6.8 L 6.9-10.8 fL Neutrophils (%) (Auto) 54.4 37.0-80.0 % Lymphocytes (%) (Auto) 35.1 10.0-50.0 % Monocytes (%) (Auto) 9.1 0.0-12.0 % Eosinophils (%) (Auto) 0.9 0.0-7.0 % Basophils (%) (Auto) 0.5 0.0-2.0 % Neutrophils # (Auto) 3.4 1.6-8.6 10 ^3/uL Lymphocytes # (Auto) 2.2 0.4-5.4 10 ^3/uL Monocytes # (Auto) 0.6 0-1.3 10 ^3/uL Eosinophils # (Auto) 0.1 0-0.8 10 ^3/uL Basophils # (Auto) 0 0-0.2 10 ^3/uL Nucleated Red Blood Cells 0.1 % Prothrombin Time 10.6 9.3-11.8 sec Prothrombin Time INR 1.00 0.9-1.15 Activated Partial Thromboplast Time 30.6 24.5-34.5 SEC Amylase Level 42 30-118 U/L Exam: CT CT ABD PELVIS W CON-ORAL IV History: ABDOMINAL PAIN COMPARISON: None Technique: Multidetector spiral CT of the abdomen and pelvis was performed from lung bases to pubic symphysis. Intravenous contrast was administered during this examination. Portal venous imaging was obtained. Axial, coronal and sagittal multiplanar reformats were performed by the technologist on a separate workstation. Radiation Dose : 1. Abdomen/Pelvis: CTDIvol 13.73mGy, DLP 690.17 mGy*cm. CONTRAST: Type of contrast: Omnipaque 300 Contrast injected: 100 ml Contrast ingested: 50 ml Findings: Lung Bases: No acute or significant lung base finding. Normal heart size. No pleural or pericardial effusion. Mild patchy scarring left lung base. Mild cardiomegaly. No consolidation. Liver: The liver is normal in size. No focal lesions. Normal hepatic vascular enhancement. Gallbladder and Biliary Tree: Gallstones Spleen: Unremarkable Pancreas: The pancreas is normal in appearance without focal lesions or abnormal enhancement. Adrenal Glands: Mild prominence of the adrenal head of the left adrenal gland. Kidneys: No hydronephrosis. 1.5 cm lower pole left renal cyst. No renal calculi. Bladder: Unremarkable Bowel: Severe diverticulosis of the sigmoid colon. No diverticulitis. No pelvic abscess. No bowel obstruction. Ascites: Absent Lymphadenopathy: No mesenteric, retroperitoneal or periportal lymphadenopathy. Abdominal Wall and Mesentery: Unremarkable. Vasculature: Aortic stent visualized. Distal abdominal aortic aneurysm beginning infrarenal in location. No obvious endoleak. [place] aneurysm measures 5.7 cm in maximal dimension. Pelvic Organs: Unremarkable Musculoskeletal: Postsurgical changes of the spine. No hardware loosening. Good alignment of the orthopedic hardware. IMPRESSION: 1. Severe sigmoid diverticulosis. INDICATION: abdominal pain TECHNIQUE: Multiple real-time sonographic images were obtained of the right upper quadrant. COMPARISON: None FINDINGS: The liver is normal in size measuring 16.8 cm and demonstrates homogeneous echogenicity without focal mass lesion. There is no intrahepatic or extrahepatic ductal dilatation. The common duct measures 4.6 mm. Multiple mobile gallstones are noted in the gallbladder. The gallbladder wall measures 2.3 mm and is within normal limits. The right kidney measures 10.5 cm and is normal in size, contour, and echogenicity. No hydronephrosis. Visualized pancreas appears unremarkable. IMPRESSION: Cholelithiasis without evidence of acute cholecystitis. No diverticulitis Abdominal aortic stent seen [place] aneurysm measures 5.7 cm without obvious endoleak. No bowel obstruction No abnormal lymphadenopathy No abscess Gallstones Radiation optimization: All CT scans at this facility use at least one of these dose optimization techniques: automated exposure control mA and/or kV adjustment per patient size (includes targeted exams where dose is matched to clinical indication) or iterative reconstruction. Assessment Resolving abdominal pain. Status post EVAR less than one year stable. Diverticulosis Continue GI workup patient was possible EGD today. We will continue to monitor Plan/Recommendation Resolving abdominal pain. Status post EVAR less than one year stable. Diverticulosis Continue GI workup patient was possible EGD today. We will continue to monitor Plan discussed with: Patient ESVIN KULKARNI Jr., MD Jun 29, 2024 11:17
[2024-06-29 13:55] LABS: Alanine Aminotransferase 15 U/L (7-40); Alkaline Phosphatase 79 U/L (46-116); Anion Gap 6 (5-15); BUN/Creatinine Ratio 17.5 (10.0-20.0); Blood Urea Nitrogen 11 mg/dL (9-23); Carbon Dioxide 29 mmol/L (20-31); Chloride 105 mmol/L (98-107); Potassium 4.9 mmol/L (3.5-5.1); Sodium 140 mmol/L (136-145)
[2024-06-29 13:56] LABS: Bilirubin, Total 0.3 mg/dL (0.2-1.0); Total Protein 7.6 g/dL (5.7-8.2)
[2024-06-29 14:00] LABS: Aspartate Aminotransferase 10 U/L (13-40); Calcium 10.9 mg/dL (8.7-10.4); Glucose 110 mg/dL (74-106)
[2024-06-29 14:07] LABS: Basophils # (auto) 0 10 ^3/uL (0-0.2); Basophils % (auto) 0.3 % (0.0-2.0); Eosinophils # (auto) 0 10 ^3/uL (0-0.8); Eosinophils % (auto) 0.1 % (0.0-7.0); Hematocrit 45.4 % (36.0-46.0); Hemoglobin 14.4 g/dL (12.2-16.2); Lymphocytes # (auto) 1.5 10 ^3/uL (0.4-5.4); Lymphocytes % (auto) 23.4 % (10.0-50.0); Mean Corpuscular Hemoglobin 30.5 pg (28.0-32.0); Mean Corpuscular Hgb Conc. 31.7 g/dL (32.0-36.0); Mean Corpuscular Volume 96.1 fL (80.0-100.0); Monocytes # (auto) 0.4 10 ^3/uL (0-1.3); Monocytes % (auto) 6.6 % (0.0-12.0); Neutrophils # (auto) 4.6 10 ^3/uL (1.6-8.6); Neutrophils % (auto) 69.6 % (37.0-80.0); Nucleated Red Blood Cells % 0.2 %; Platelet Count (auto) 292 10^3/uL (140-450); Red Blood Cells 4.73 10^6/uL (4.0-5.20); Red Cell Distribution Width 15.5 % (11.8-14.3); White Blood Cell 6.6 10^3/uL (4.4-10.8)
--- NOTE | 2024-06-29 16:16 | DVHPN2 ---
Progress Note Date Seen: Jun 29, 2024 Resident Creating Document: ЕКАТЕРИНА COLINDRES RESIDENT Medical Necessity Reason Pt with a Central, PICC or Fol: No Subjective Review of Systems Patient was seen and examined on the bedside. She is alert oriented x3. The patient was scheduled for EGD today but she refused to do that. Mentioned improvement epigastric pain and tolerating oral diet. No nausea, vomiting and 2 episodes of diarrhea since morning. Objective vital signs Vital Sign Date Time Temp Pulse Resp B/P (MAP) Pulse Ox O2 Delivery O2 Flow Rate FiO2 06/29/24 14:50 66 16 127/57 06/29/24 12:39 97.5 94 97.5 06/29/24 08:00 Room Air* 0 21 Total Intake and Output 06/28/24 06/28/24 06/29/24 15:00 23:00 07:00 Intake Total 50 ml 536 ml 750 ml Balance 50 ml 536 ml 750 ml medications Current Medications Medications Dose Ordered Sig/Tamara Route Start Time Stop Time Status Last Admin Dose Admin Nitroglycerin 0.4 mg Q5MINP PRN SL 06/26/24 21:30 Hydromorphone HCl 0.6 mg Q4HPRN PRN IV 06/26/24 21:30 Hydromorphone HCl 1 mg Q4HPRN PRN IV 06/26/24 21:30 06/29/24 14:50 1 MG Ondansetron HCl 4 mg Q6HPRN PRN IV 06/26/24 21:30 06/27/24 12:18 4 MG Metronidazole 100 ml @ 100 mls/hr Q8HR IV 06/26/24 23:30 06/29/24 13:40 100 MLS/HR Pantoprazole Sodium 40 mg DAILY IV 06/27/24 10:00 06/29/24 08:16 40 MG Sucralfate 1 gm Q6HR PO 06/27/24 00:00 06/29/24 11:47 1 GM Atorvastatin Calcium 10 mg DAILY@DINNER PO 06/27/24 17:30 06/28/24 17:19 10 MG Aspirin 81 mg DAILY PO 06/27/24 10:00 06/29/24 08:16 81 MG Gabapentin 600 mg TID PO 06/27/24 06:00 06/29/24 13:40 600 MG Calcium/Vitamin D 1 tab BIDWM PO 06/27/24 08:00 06/29/24 08:16 1 TAB Hydrocortisone Sodium Succinate 50 mg Q8HR IV 06/28/24 06:00 06/29/24 13:40 50 MG Ceftriaxone Sodium 50 ml @ 100 mls/hr 1100,2300 IV 06/27/24 23:00 06/29/24 09:54 100 MLS/HR Potassium Chloride 100 ml @ 50 mls/hr 1130,2330 IV 06/27/24 23:30 06/28/24 11:18 50 MLS/HR Ketorolac Tromethamine 15 mg Q6HPRN PRN IV 06/27/24 23:00 07/02/24 20:44 06/28/24 13:43 15 MG Sodium Chloride 1,000 ml @ 40 mls/hr Q24H IV 06/28/24 16:30 Hydrochlorothiazide 12.5 mg DAILY PO 06/29/24 10:00 06/29/24 08:17 12.5 MG Clonidine HCl UD PRN PO 06/28/24 16:30 06/28/24 17:18 0.1 MG Valsartan 160 mg DAILY@DINNER PO 06/28/24 18:00 06/28/24 17:17 160 MG Examination Physical examination: General Appearance: Alert, Oriented X3, Cooperative, No acute distress HEENT: Atraumatic, PERRLA, EOMI, Mucous membrane moist/pink Respiratory: Clear to auscultation, Normal air movement Cardiovascular: Regular rate, Normal S1, Normal S2, No murmurs, no chest wall tenderness Abdominal: Normal bowel sounds, Soft, No tenderness, No hepatospenomegaly, No masses Extremities: No clubbing, No cyanosis, No edema, Normal pulses, No tenderness/swelling Skin: No rashes, No breakdown, No significant lesion Neuro: Normal gait, Normal speech, Strength at 5/5 X4 ext, Normal tone, Sensation intact, grossly intact cranial nerves. Psych/Mental Status: Mental status NL, Mood NL laboratory and microbiology Laboratory Tests 06/29/24 13:10 Test 06/29/24 13:10 Range/Units Serum Glucose 110 H 74-106 mg/dL Labs and/or images reviewed: Labs reviewed by me, Image(s) reviewed by me Problem List/Assessment/Plan Problem List/Assessment/Plan Assessment Acute epigastric pain Cholelithiasis Ruled out acute cholecystitis ? Acute gastritis ? Peptic ulcer disease GERD Chronic obstructive pulmonary disease no exacerbation Hypokalemia H/O of abdominal aortic aneurysm and s/p EVAR less than 1 year ago. Plan/recommendation - Patient was scheduled for EGD today but she refused to do that. -Continue IV Protonix 40 mg IV daily, Carafate 1 g po q.i.d.. -Gallbladder showed gallstone, no acute cholecystitis - Stool occult pending -Amylase level within reference range 42. - Appreciate vascular surgery consultation. - IV antibiotic and other management as per primary team -we will continue to monitor this patient. Plan discussed with Dr. Rodriguez Plan discussed with: Patient, Other ЕКАТЕРИНА COLINDRES RESIDENT Jun 29, 2024 16:16
--- NOTE | 2024-06-29 16:43 | DVHINCON2 ---
Date Seen: Jun 29, 2024 Referring Physician [facility] case planner. Reason for Consultation Assuming the care of the patient. History of Present Illness 69-year-old female with a known history of recurrent abdominal pain, COPD, previous history of tobacco use disorder, abdominal aortic aneurysm status post endovascular aneurysm repair in 2023 presented to the hospital with the room no pain in the epigastric and right upper quadrant found to have cholelithiasis without any evidence of acute cholecystitis. GI has evaluated the patient and recommended EGD. Patient was currently denies any epigastric one 0 right upper quadrant pain. 1. Epigastric pain and right upper quadrant pain with cholelithiasis, no evidence of acute cholecystitis 2. GERD 3. Diverticulosis 4. COPD 5. Abdominal aortic aneurysm status post aneurysm repair -we will follow up with GI for possible EGD, discharge plan. -I notified the nurse to make aware Dr. trent that is a [facility] patient. Past Medical History COPD Abdominal aortic aneurysm GERD Cholelithiasis Past Surgical History Abdominal aortic aneurysm status post endovascular aneurysm repair. Family History: Patient reports no known family medical history. Allergies: Coded Allergies: NO KNOWN ALLERGIES (Unverified , 06/26/24) Home Meds Reported Medications Atorvastatin Calcium (ATORVASTATIN CALCIUM) 10 Mg Tab, 1 TAB PO 06/26/24 Oxycodone W/ Acetaminophen (Oxycodone/Acetaminophen 10-300 mg) 1 Tab Tab 06/26/24 Gabapentin (Gabapentin) 600 Mg Tab 06/26/24 Ergocalciferol (Vitamin D) 50,000 Unit Cap, 1 06/26/24 Current Medications Current Medications Medications (Trade) Dose Ordered Sig/Tamara Route PRN Reason Start Time Stop Time Status Last Admin Valsartan (Diovan) 160 mg DAILY@BREAKFAST PO 06/29/24 07:30 06/28/24 16:55 DC Hydrochlorothiazide (hydroCHLOROthiazide TABLET) 12.5 mg DAILY PO 06/29/24 10:00 06/29/24 08:17 Valsartan (Diovan) 160 mg DAILY@DINNER PO 06/28/24 18:00 06/29/24 16:14 Review of Systems Twelve review of system were negative except mentioned above. Vital Signs Vital Signs Date Time Temp Pulse Resp B/P (MAP) Pulse Ox O2 Delivery O2 Flow Rate FiO2 06/29/24 16:14 164/92 06/29/24 15:20 68 16 06/29/24 12:39 97.5 94 97.5 06/29/24 08:00 Room Air* 0 21 Physical Exam HEENT pupils are reactive Neck is supple CV is S1-S2 regular rate and rhythm Respiratory bilateral clear GI posterior bowel sounds soft nondistended nontender no guarding no rigidity Extremity no edema [employer] no motor deficits Labs/Diagnostic Data Labs Test 06/29/24 13:10 06/27/24 05:43 06/27/24 02:05 06/26/24 22:10 Range/Units White Blood Count 6.6 4.4-10.8 10^3/uL Red Blood Count 4.73 4.0-5.20 10^6/uL Hemoglobin 14.4 12.2-16.2 g/dL Hematocrit 45.4 36.0-46.0 % Mean Corpuscular Volume 96.1 80.0-100.0 fL Mean Corpuscular Hemoglobin 30.5 28.0-32.0 pg Mean Corpuscular Hemoglobin Concent 31.7 L 32.0-36.0 g/dL Red Cell Distribution Width 15.5 H 11.8-14.3 % Platelet Count 292 140-450 10^3/uL Mean Platelet Volume 7.3 6.9-10.8 fL Neutrophils (%) (Auto) 69.6 37.0-80.0 % Lymphocytes (%) (Auto) 23.4 10.0-50.0 % Monocytes (%) (Auto) 6.6 0.0-12.0 % Eosinophils (%) (Auto) 0.1 0.0-7.0 % Basophils (%) (Auto) 0.3 0.0-2.0 % Neutrophils # (Auto) 4.6 1.6-8.6 10 ^3/uL Lymphocytes # (Auto) 1.5 0.4-5.4 10 ^3/uL Monocytes # (Auto) 0.4 0-1.3 10 ^3/uL Eosinophils # (Auto) 0 0-0.8 10 ^3/uL Basophils # (Auto) 0 0-0.2 10 ^3/uL Nucleated Red Blood Cells 0.2 % Sodium Level 140 136-145 mmol/L Potassium Level 4.9 3.5-5.1 mmol/L Chloride Level 105 98-107 mmol/L Carbon Dioxide Level 29 20-31 mmol/L Anion Gap 6 5-15 Blood Urea Nitrogen 11 9-23 mg/dL Creatinine 0.63 0.550-1.02 mg/dL Glomerular Filtration Rate Calc 95 >90 mL/min BUN/Creatinine Ratio 17.5 10.0-20.0 Serum Glucose 110 H 74-106 mg/dL Calcium Level 10.9 H 8.7-10.4 mg/dL Total Bilirubin 0.3 0.2-1.0 mg/dL Aspartate Amino Transferase (AST) 10 L 13-40 U/L Alanine Aminotransferase (ALT) 15 7-40 U/L Alkaline Phosphatase 79 46-116 U/L Total Protein 7.6 5.7-8.2 g/dL Albumin 5.0 H 3.2-4.8 g/dL Erythrocyte Sedimentation Rate 8 0-20 mm/hr Hemoglobin A1c 5.3 <5.7 % A1C Uric Acid 7.7 3.1-7.8 mg/dL Phosphorus Level 4.0 2.4-5.1 mg/dL Magnesium Level 2.0 1.6-2.6 mg/dL Triglycerides Level 137 < 150 mg/dL Cholesterol Level 159 < 200 mg/dL LDL Cholesterol 77 < 100 mg/dL HDL Cholesterol 61 H 40-59 mg/dL Vitamin B12 Level 279 211-911 pg/mL Folic Acid 17.40 >5.38 ng/mL Urine Color Light-yellow Yellow Urine Clarity Clear Clear Urine pH 5.5 5.0-9.0 Urine Specific [place] 1.010 1.001-1.035 Urine Protein Negative Negative Urine Ketones Negative Negative Urine Blood Negative Negative /uL Urine Nitrite Negative Negative Urine Bilirubin Negative Negative Urine Urobilinogen Normal Negative mg/dL Urine Leukocyte Esterase Negative Negative /uL Urine RBC <1 0 - 4 /hpf Urine Microscopic WBC 4 0-5 /HPF Urine Squamous Epithelial Cells Few <5 /hpf Urine Bacteria Few H None Seen /hpf Urine Glucose Normal Normal mg/dL Prothrombin Time 10.6 9.3-11.8 sec Prothrombin Time INR 1.00 0.9-1.15 Activated Partial Thromboplast Time 30.6 24.5-34.5 SEC Amylase Level 42 30-118 U/L Assessment 69-year-old female with a known history of recurrent abdominal pain, COPD, previous history of tobacco use disorder, abdominal aortic aneurysm status post endovascular aneurysm repair in 2023 presented to the hospital with the room no pain in the epigastric and right upper quadrant found to have cholelithiasis without any evidence of acute cholecystitis. GI has evaluated the patient and recommended EGD. Patient was currently denies any epigastric one 0 right upper quadrant pain. 1. Epigastric pain and right upper quadrant pain with cholelithiasis, no evidence of acute cholecystitis 2. GERD 3. Diverticulosis 4. COPD 5. Abdominal aortic aneurysm status post aneurysm repair -we will follow up with GI for possible EGD, discharge plan in next 24-48 hours. Plan discussed with: Patient Date of Service: Jun 29, 2024 Billing Provider: MENDY MARTINS MD Common Visit Codes: NOT BILLABLE MENDY MARTINS MD Jun 29, 2024 16:43
--- NOTE | 2024-06-29 19:32 | DVHPN2 ---
Progress Note - Dictate Date Seen: Jun 29, 2024 Medical Necessity Reason Pt with a Central, PICC or Fol: No vital signs Vital Sign Date Time Temp Pulse Resp B/P (MAP) Pulse Ox O2 Delivery O2 Flow Rate FiO2 06/29/24 16:47 97.7 79 18 164/92 (116) 92 97.7 06/29/24 08:00 Room Air* 0 21 Total Intake and Output 06/28/24 06/28/24 06/29/24 15:00 23:00 07:00 Intake Total 50 ml 536 ml 750 ml Balance 50 ml 536 ml 750 ml medications Current Medications Medications Dose Ordered Sig/Tamara Route Start Time Stop Time Status Last Admin Dose Admin Nitroglycerin 0.4 mg Q5MINP PRN SL 06/26/24 21:30 Hydromorphone HCl 0.6 mg Q4HPRN PRN IV 06/26/24 21:30 Hydromorphone HCl 1 mg Q4HPRN PRN IV 06/26/24 21:30 06/29/24 14:50 1 MG Ondansetron HCl 4 mg Q6HPRN PRN IV 06/26/24 21:30 06/27/24 12:18 4 MG Metronidazole 100 ml @ 100 mls/hr Q8HR IV 06/26/24 23:30 06/29/24 13:40 100 MLS/HR Pantoprazole Sodium 40 mg DAILY IV 06/27/24 10:00 06/29/24 08:16 40 MG Sucralfate 1 gm Q6HR PO 06/27/24 00:00 06/29/24 17:13 1 GM Atorvastatin Calcium 10 mg DAILY@DINNER PO 06/27/24 17:30 06/29/24 16:15 10 MG Aspirin 81 mg DAILY PO 06/27/24 10:00 06/29/24 08:16 81 MG Gabapentin 600 mg TID PO 06/27/24 06:00 06/29/24 13:40 600 MG Calcium/Vitamin D 1 tab BIDWM PO 06/27/24 08:00 06/29/24 17:13 1 TAB Hydrocortisone Sodium Succinate 50 mg Q8HR IV 06/28/24 06:00 06/29/24 13:40 50 MG Ceftriaxone Sodium 50 ml @ 100 mls/hr 1100,2300 IV 06/27/24 23:00 06/29/24 09:54 100 MLS/HR Potassium Chloride 100 ml @ 50 mls/hr 1130,2330 IV 06/27/24 23:30 06/28/24 11:18 50 MLS/HR Ketorolac Tromethamine 15 mg Q6HPRN PRN IV 06/27/24 23:00 07/02/24 20:44 06/28/24 13:43 15 MG Sodium Chloride 1,000 ml @ 40 mls/hr Q24H IV 06/28/24 16:30 06/29/24 16:15 40 MLS/HR Hydrochlorothiazide 12.5 mg DAILY PO 06/29/24 10:00 06/29/24 08:17 12.5 MG Clonidine HCl UD PRN PO 06/28/24 16:30 06/28/24 17:18 0.1 MG Valsartan 160 mg DAILY@DINNER PO 06/28/24 18:00 06/29/24 16:14 160 MG laboratory and microbiology Laboratory Tests 06/29/24 13:10 Test 06/29/24 13:10 Range/Units Serum Glucose 110 H 74-106 mg/dL YANN FLORES MD Jun 29, 2024 19:32
[2024-06-30] VITALS (8 sets, daily range): BP systolic 119–157; BP diastolic 66–91; PULSE 50–83; RESP 16–19; TEMP 97.7–98; O2SAT 90–98
--- NOTE | 2024-06-30 16:42 | DVHPN2 ---
Subjective Overnight events noted. As per bedside RN patient has refused EGD. Patient was currently tolerating diet can be discharged. Changes from previous H/P or p: No Changes Objective Vitals Vital Signs Date Time Temp Pulse Resp B/P (MAP) Pulse Ox O2 Delivery O2 Flow Rate FiO2 06/30/24 13:00 97.8 65 18 128/66 (86) 93 97.8 06/30/24 07:50 Room Air* 0 21 Intake/Output Intake and Output 06/30/24 07:00 Intake Total 2350 ml Balance 2350 ml Intake Oral 1550 ml IV Total 800 ml # Voids 12 # Bowel Movements 1 Exam HEENT pupils are reactive Neck is supple CV is S1-S2 regular rate and rhythm Has been by clear GI posterior bowel sound Extremity no edema [employer]OR no motor deficit Medications Current Medications Medications Dose Ordered Sig/Tamara Route Start Time Stop Time Status Last Admin Dose Admin Nitroglycerin 0.4 mg Q5MINP PRN SL 06/26/24 21:30 Ondansetron HCl 4 mg Q6HPRN PRN IV 06/26/24 21:30 06/27/24 12:18 4 MG Metronidazole 100 ml @ 100 mls/hr Q8HR IV 06/26/24 23:30 06/30/24 13:42 100 MLS/HR Pantoprazole Sodium 40 mg DAILY IV 06/27/24 10:00 06/30/24 09:04 40 MG Sucralfate 1 gm Q6HR PO 06/27/24 00:00 06/30/24 11:38 1 GM Atorvastatin Calcium 10 mg DAILY@DINNER PO 06/27/24 17:30 06/29/24 16:15 10 MG Aspirin 81 mg DAILY PO 06/27/24 10:00 06/30/24 09:04 81 MG Gabapentin 600 mg TID PO 06/27/24 06:00 06/30/24 13:42 600 MG Calcium/Vitamin D 1 tab BIDWM PO 06/27/24 08:00 06/30/24 07:54 1 TAB Hydrocortisone Sodium Succinate 50 mg Q8HR IV 06/28/24 06:00 06/30/24 13:42 50 MG Ceftriaxone Sodium 50 ml @ 100 mls/hr 1100,2300 IV 06/27/24 23:00 06/30/24 10:05 100 MLS/HR Potassium Chloride 100 ml @ 50 mls/hr 1130,2330 IV 06/27/24 23:30 06/28/24 11:18 50 MLS/HR Ketorolac Tromethamine 15 mg Q6HPRN PRN IV 06/27/24 23:00 07/02/24 20:44 06/28/24 13:43 15 MG Sodium Chloride 1,000 ml @ 40 mls/hr Q24H IV 06/28/24 16:30 06/29/24 16:15 40 MLS/HR Hydrochlorothiazide 12.5 mg DAILY PO 06/29/24 10:00 06/30/24 09:07 12.5 MG Clonidine HCl UD PRN PO 06/28/24 16:30 06/28/24 17:18 0.1 MG Valsartan 160 mg DAILY@DINNER PO 06/28/24 18:00 06/29/24 16:14 160 MG Hydromorphone HCl 1 mg Q6HP PRN IV 06/30/24 14:30 Oxycodone/ Acetaminophen 2 tab Q6HR PO 06/30/24 18:00 Laboratory Results Laboratory Tests 06/29/24 13:10 Urinalysis Test 06/27/24 02:05 Urine Color Light-yellow (Yellow) Urine Clarity Clear (Clear) Urine pH 5.5 (5.0-9.0) Urine Specific [place] 1.010 (1.001-1.035) Urine Protein Negative (Negative) Urine Ketones Negative (Negative) Urine Blood Negative /uL (Negative) Urine Nitrite Negative (Negative) Urine Bilirubin Negative (Negative) Urine Urobilinogen Normal mg/dL (Negative) Urine Leukocyte Esterase Negative /uL (Negative) Urine RBC <1 /hpf (0 - 4) Urine Microscopic WBC 4 /HPF (0-5) Urine Squamous Epithelial Cells Few /hpf (<5) Urine Bacteria Few /hpf (None Seen) H Urine Glucose Normal mg/dL (Normal) Assessment/Plan Assessment/Plan 69-year-old female with a known history of recurrent abdominal pain, COPD, previous history of tobacco use disorder, abdominal aortic aneurysm status post endovascular aneurysm repair in 2023 presented to the hospital with the room no pain in the epigastric and right upper quadrant found to have cholelithiasis without any evidence of acute cholecystitis. GI has evaluated the patient and recommended EGD. Patient was currently denies any epigastric one 0 right upper quadrant pain. 1. Epigastric pain and right upper quadrant pain with cholelithiasis, no evidence of acute cholecystitis 2. GERD 3. Diverticulosis 4. COPD 5. Abdominal aortic aneurysm status post aneurysm repair -we will follow up with GI for possible EGD, discharge plan. Plan discussed with: Patient My Orders Orders - MENDY MARTINS MD Procedure Category Date Status Time * Lead Business Systems Analyst CONS 06/30/24 Transmitted Consult Date of Service: Jun 30, 2024 Billing Provider: MENDY MARTINS MD Common Visit Codes: NOT BILLABLE MENDY MARTINS MD Jun 30, 2024 16:42
--- NOTE | 2024-06-30 17:10 | DVHPN2 ---
Progress Note Date Seen: Jun 30, 2024 Resident Creating Document: ЕКАТЕРИНА COLINDRES RESIDENT Medical Necessity Reason Pt with a Central, PICC or Fol: No Subjective Review of Systems The patient was seen and examined on the bedside. Patient is alert oriented x3. Complaint of epigastric pain no other active complaint. Objective vital signs Vital Sign Date Time Temp Pulse Resp B/P (MAP) Pulse Ox O2 Delivery O2 Flow Rate FiO2 06/30/24 13:00 97.8 65 18 128/66 (86) 93 97.8 06/30/24 07:50 Room Air* 0 21 Total Intake and Output 06/29/24 06/29/24 06/30/24 15:00 23:00 07:00 Intake Total 150 ml 1450 ml 750 ml Balance 150 ml 1450 ml 750 ml medications Current Medications Medications Dose Ordered Sig/Tamara Route Start Time Stop Time Status Last Admin Dose Admin Nitroglycerin 0.4 mg Q5MINP PRN SL 06/26/24 21:30 Ondansetron HCl 4 mg Q6HPRN PRN IV 06/26/24 21:30 06/27/24 12:18 4 MG Metronidazole 100 ml @ 100 mls/hr Q8HR IV 06/26/24 23:30 06/30/24 13:42 100 MLS/HR Pantoprazole Sodium 40 mg DAILY IV 06/27/24 10:00 06/30/24 09:04 40 MG Sucralfate 1 gm Q6HR PO 06/27/24 00:00 06/30/24 11:38 1 GM Atorvastatin Calcium 10 mg DAILY@DINNER PO 06/27/24 17:30 06/29/24 16:15 10 MG Aspirin 81 mg DAILY PO 06/27/24 10:00 06/30/24 09:04 81 MG Gabapentin 600 mg TID PO 06/27/24 06:00 06/30/24 13:42 600 MG Calcium/Vitamin D 1 tab BIDWM PO 06/27/24 08:00 06/30/24 07:54 1 TAB Hydrocortisone Sodium Succinate 50 mg Q8HR IV 06/28/24 06:00 06/30/24 13:42 50 MG Ceftriaxone Sodium 50 ml @ 100 mls/hr 1100,2300 IV 06/27/24 23:00 06/30/24 10:05 100 MLS/HR Potassium Chloride 100 ml @ 50 mls/hr 1130,2330 IV 06/27/24 23:30 06/28/24 11:18 50 MLS/HR Ketorolac Tromethamine 15 mg Q6HPRN PRN IV 06/27/24 23:00 07/02/24 20:44 06/28/24 13:43 15 MG Sodium Chloride 1,000 ml @ 40 mls/hr Q24H IV 06/28/24 16:30 06/30/24 16:44 40 MLS/HR Hydrochlorothiazide 12.5 mg DAILY PO 06/29/24 10:00 06/30/24 09:07 12.5 MG Clonidine HCl UD PRN PO 06/28/24 16:30 06/28/24 17:18 0.1 MG Valsartan 160 mg DAILY@DINNER PO 06/28/24 18:00 06/29/24 16:14 160 MG Hydromorphone HCl 1 mg Q6HP PRN IV 06/30/24 14:30 Oxycodone/ Acetaminophen 2 tab Q6HR PO 06/30/24 18:00 Examination Physical examination: General Appearance: Alert, Oriented X3, Cooperative, No acute distress HEENT: Atraumatic, PERRLA, EOMI, Mucous membrane moist/pink Respiratory: Clear to auscultation, Normal air movement Cardiovascular: Regular rate, Normal S1, Normal S2, No murmurs, no chest wall tenderness Abdominal: Normal bowel sounds, Soft, No tenderness, No hepatospenomegaly, No masses Extremities: No clubbing, No cyanosis, No edema, Normal pulses, No tenderness/swelling Skin: No rashes, No breakdown, No significant lesion Neuro: Normal gait, Normal speech, Strength at 5/5 X4 ext, Normal tone, Sensation intact, Cranial nerves 3-12 NL, Reflexes 2+ Psych/Mental Status: Mental status NL, Mood NL laboratory and microbiology Laboratory Tests 06/29/24 13:10 Test 06/29/24 13:10 Range/Units Serum Glucose 110 H 74-106 mg/dL Labs and/or images reviewed: Labs reviewed by me, Image(s) reviewed by me Problem List/Assessment/Plan Problem List/Assessment/Plan Assessment Acute epigastric pain Cholelithiasis Ruled out acute cholecystitis ? Acute gastritis ? Peptic ulcer disease GERD Chronic obstructive pulmonary disease no exacerbation Hypokalemia H/O of abdominal aortic aneurysm and s/p EVAR less than 1 year ago. Plan/recommendation - Scheduled for EGD tomorrow and NPO after midnight. -Continue IV Protonix 40 mg IV daily, Carafate 1 g po q.i.d.. -Gallbladder showed gallstone, no acute cholecystitis - Stool occult pending -Amylase level within reference range 42. - Appreciate vascular surgery consultation. - IV antibiotic and other management as per primary team -we will continue to monitor this patient. Plan discussed with Dr. Rodriguez Plan discussed with: Patient, Other Dietary Evaluation Review Comments: 1. Continue cardiac diet as tolerated 2. Encourage continued good oral intakes >75% of meals 3. Monitor/treat abd symptoms/pain 4. Noted 50,000 IU Vit D3 on outpt meds list; consider vit D lab redraw to check for deficiency/improvement Expected Outcomes/Goals: Continued good PO intake, weight maintenance, improved GI sx ЕКАТЕРИНА COLINDRES RESIDENT Jun 30, 2024 17:10
[2024-06-30] MEDS: OXYCODONE W/ ACETAMINOPHEN 5/325MG TABLET PO SCH (17:22)
[2024-06-30] MEDS: HYDROMORPHONE HCL 1 MG/ML INJ IV PRN (17:48)
--- NOTE | 2024-06-30 22:13 | DVHPN2 ---
Progress Note - Dictate Date Seen: Jun 30, 2024 Medical Necessity Reason Pt with a Central, PICC or Fol: No Subjective The patient is currently being evaluated and treated for epigastric abdominal pains. She was scheduled to receive upper GI endoscopy by Dr. Chaparro Rodriguez this morning Apparently patient had another reason not to receive EGD today. She was verbally counseled but not comply. She agrees to receive EGD exam by tomorrow morning Risks benefits complications of EGD test are well explained to the patient vital signs Vital Sign Date Time Temp Pulse Resp B/P (MAP) Pulse Ox O2 Delivery O2 Flow Rate FiO2 06/30/24 21:00 97.9 61 18 151/78 (102) 91 97.9 06/30/24 07:50 Room Air* 0 21 Total Intake and Output 06/29/24 06/29/24 06/30/24 15:00 23:00 07:00 Intake Total 150 ml 1450 ml 750 ml Balance 150 ml 1450 ml 750 ml medications Current Medications Medications Dose Ordered Sig/Tamara Route Start Time Stop Time Status Last Admin Dose Admin Nitroglycerin 0.4 mg Q5MINP PRN SL 06/26/24 21:30 Ondansetron HCl 4 mg Q6HPRN PRN IV 06/26/24 21:30 06/27/24 12:18 4 MG Metronidazole 100 ml @ 100 mls/hr Q8HR IV 06/26/24 23:30 06/30/24 21:59 100 MLS/HR Pantoprazole Sodium 40 mg DAILY IV 06/27/24 10:00 06/30/24 09:04 40 MG Sucralfate 1 gm Q6HR PO 06/27/24 00:00 06/30/24 17:20 1 GM Atorvastatin Calcium 10 mg DAILY@DINNER PO 06/27/24 17:30 06/30/24 17:19 10 MG Aspirin 81 mg DAILY PO 06/27/24 10:00 06/30/24 09:04 81 MG Gabapentin 600 mg TID PO 06/27/24 06:00 06/30/24 21:59 600 MG Calcium/Vitamin D 1 tab BIDWM PO 06/27/24 08:00 06/30/24 17:19 1 TAB Ceftriaxone Sodium 50 ml @ 100 mls/hr 1100,2300 IV 06/27/24 23:00 06/30/24 10:05 100 MLS/HR Potassium Chloride 100 ml @ 50 mls/hr 1130,2330 IV 06/27/24 23:30 06/28/24 11:18 50 MLS/HR Sodium Chloride 1,000 ml @ 40 mls/hr Q24H IV 06/28/24 16:30 06/30/24 16:44 40 MLS/HR Hydrochlorothiazide 12.5 mg DAILY PO 06/29/24 10:00 06/30/24 09:07 12.5 MG Clonidine HCl UD PRN PO 06/28/24 16:30 06/28/24 17:18 0.1 MG Valsartan 160 mg DAILY@DINNER PO 06/28/24 18:00 06/30/24 17:20 160 MG Hydromorphone HCl 1 mg Q6HP PRN IV 06/30/24 14:30 06/30/24 17:48 1 MG Oxycodone/ Acetaminophen 2 tab Q6HR PO 06/30/24 18:00 laboratory and microbiology Laboratory Tests 06/29/24 13:10 Test 06/29/24 13:10 Range/Units Serum Glucose 110 H 74-106 mg/dL Assessment/Plan Epigastric abdominal pains Noncompliance Narcotic dependence Status post acute gout Treatment plans DC Toradol D/c steroids Dietary Evaluation Review Comments: 1. Continue cardiac diet as tolerated 2. Encourage continued good oral intakes >75% of meals 3. Monitor/treat abd symptoms/pain 4. Noted 50,000 IU Vit D3 on outpt meds list; consider vit D lab redraw to check for deficiency/improvement Expected Outcomes/Goals: Continued good PO intake, weight maintenance, improved GI sx YANN FLORES MD Jun 30, 2024 22:13
[2024-07-01] VITALS (8 sets, daily range): BP systolic 122–164; BP diastolic 56–88; PULSE 55–84; RESP 12–18; TEMP 97.6–97.9; O2SAT 90–98
[2024-07-01] MEDS: IOHEXOL 300 MG/ML 100ML BOTTLE IJ ONE (10:07)
[2024-07-01] MEDS: GASTROGRAFIN 30 ML SOL ONE (10:07)
[2024-07-01] MEDS ORDERED: LIDOCAINE VISCOUS 2% 15ML UD ONE (13:25)
[2024-07-01] MEDS ORDERED: fentaNYL CITRATE 100 MCG/2 ML VL ONE (13:35)
--- NOTE | 2024-07-01 13:41 | DVHOP2 ---
Operative Report DATE OF OPERATION: 07/01/24 PROCEDURE: Upper Endoscopy with biopsy. PREOPERATIVE INDICATION: The patient is a 69 -year-old female undergoing endoscopy for epigastric pain POSTOPERATIVE DIAGNOSES: 1. [id number] antral gastritis with pre-pyloric antral gastric erosions and tiny ulcers 2. 1 cm sliding-type hiatal hernia with slightly irregular squamocolumnar junction but no significant erosive esophagitis 3. Otherwise normal examination up to the 2nd and 3rd part of the duodenal with no active bleeding PROCEDURE PERFORMED BY: Dustin Rodriguez GI NURSE: Peggy SCOPE: Olympus videoendoscope. ASA CLASS: 2 PREOPERATIVE MEDICATIONS: Mac sedation, Dr. Adrian PROCEDURE IN DETAIL: After obtaining an informed consent, the patient was placed on left lateral decubitus position. The patient was then sedated with the above medications. A bite block was placed between her teeth. The endoscope was then passed through the oropharynx, into the esophagus, and through the stomach and pylorus up to the second and third part of the duodenum. The endoscope was then withdrawn. The 2nd and 3rd part of the duodenal and the duodenal bulb were normal. Duodenal biopsies were obtained The pre-pyloric area and antrum showed moderate gastritis with pre-pyloric antral gastric erosions and tiny ulcers On retroflexion the fundus and cardia were normal. Gastric biopsies were obtained. The endoscope was then withdrawn into the distal esophagus Patient had a 1 cm sliding-type hiatal hernia with slightly irregular squamocolumnar junction no significant erosive esophagitis The remaining distal and proximal esophagus and oropharynx were unremarkable The patient tolerated the procedure well without difficulty. COMPLICATIONS : None SPECIMENS: Duodenal biopsies Gastric biopsies DISPOSITION: Transfer back to the floor Stable PLAN: 1. Await for biopsy result 2. Will place pt on Protonix 40 mg bid 3. Carafate 1 g p.o. twice a day 4. DC aspirin NSAIDs smoking alcohol 5. Colace 100 mg p.o. twice a day 6. Patient can try Movantik 12.5 mg p.o. as an outpatient for narcotic induced constipation 7. Resume soft mechanical diet advance as tolerated 8. Patient is cleared for discharge from GI point of view and she can follow up in our office as an outpatient DUSTIN RODRIGUEZ MD Jul 01, 2024 13:41
[2024-07-01] MEDS ORDERED: DexAMETHasone SOD PHOS 10MG/1ML VIAL INJ ONE (13:47)
[2024-07-01] MEDS ORDERED: MIDAZOLAM HCL 2MG/2ML 2ml VIAL (1mg/ml) ONE (13:47)
[2024-07-01] MEDS ORDERED: PROPOFOL 10 MG/ML 20 ML IV ONE (13:47)
--- NOTE | 2024-07-01 16:18 | DVHPN2 ---
Progress Note - Dictate Medical Necessity Reason Pt with a Central, PICC or Fol: No Subjective The patient is currently being evaluated and treated for epigastric abdominal pains. She was scheduled to receive upper GI endoscopy by Dr. Chaparro Rodriguez this morning Apparently patient had another reason not to receive EGD today. She was verbally counseled but not comply. She agrees to receive EGD exam by tomorrow morning Risks benefits complications of EGD test are well explained to the patient vital signs Vital Sign Date Time Temp Pulse Resp B/P (MAP) Pulse Ox O2 Delivery O2 Flow Rate FiO2 07/01/24 14:16 72 16 152/83 (106) 95 07/01/24 14:00 Room Air 0 95 07/01/24 13:46 98.5 98.5 Total Intake and Output 06/30/24 06/30/24 07/01/24 15:00 23:00 07:00 Intake Total 50 ml 1565 ml 800 ml Balance 50 ml 1565 ml 800 ml medications Current Medications Medications Dose Ordered Sig/Tamara Route Start Time Stop Time Status Last Admin Dose Admin Nitroglycerin 0.4 mg Q5MINP PRN SL 06/26/24 21:30 Ondansetron HCl 4 mg Q6HPRN PRN IV 06/26/24 21:30 06/27/24 12:18 4 MG Metronidazole 100 ml @ 100 mls/hr Q8HR IV 06/26/24 23:30 07/01/24 05:38 100 MLS/HR Pantoprazole Sodium 40 mg DAILY IV 06/27/24 10:00 07/01/24 10:56 40 MG Sucralfate 1 gm Q6HR PO 06/27/24 00:00 06/30/24 23:22 1 GM Atorvastatin Calcium 10 mg DAILY@DINNER PO 06/27/24 17:30 06/30/24 17:19 10 MG Aspirin 81 mg DAILY PO 06/27/24 10:00 06/30/24 09:04 81 MG Gabapentin 600 mg TID PO 06/27/24 06:00 06/30/24 21:59 600 MG Calcium/Vitamin D 1 tab BIDWM PO 06/27/24 08:00 06/30/24 17:19 1 TAB Ceftriaxone Sodium 50 ml @ 100 mls/hr 1100,2300 IV 06/27/24 23:00 07/01/24 10:56 100 MLS/HR Potassium Chloride 100 ml @ 50 mls/hr 1130,2330 IV 06/27/24 23:30 06/28/24 11:18 50 MLS/HR Sodium Chloride 1,000 ml @ 40 mls/hr Q24H IV 06/28/24 16:30 06/30/24 16:44 40 MLS/HR Hydrochlorothiazide 12.5 mg DAILY PO 06/29/24 10:00 06/30/24 09:07 12.5 MG Clonidine HCl UD PRN PO 06/28/24 16:30 06/28/24 17:18 0.1 MG Valsartan 160 mg DAILY@DINNER PO 06/28/24 18:00 06/30/24 17:20 160 MG Hydromorphone HCl 1 mg Q6HP PRN IV 06/30/24 14:30 07/01/24 10:08 1 MG Oxycodone/ Acetaminophen 2 tab Q6HR PO 06/30/24 18:00 07/01/24 16:13 2 TAB laboratory and microbiology Laboratory Tests 06/29/24 13:10 Test 06/29/24 13:10 Range/Units Serum Glucose 110 H 74-106 mg/dL Assessment/Plan Epigastric abdominal pains Noncompliance Narcotic dependence Status post acute gout Treatment plans DC Toradol D/c steroids Dietary Evaluation Review Comments: 1. Continue cardiac diet as tolerated 2. Encourage continued good oral intakes >75% of meals 3. Monitor/treat abd symptoms/pain 4. Noted 50,000 IU Vit D3 on outpt meds list; consider vit D lab redraw to check for deficiency/improvement Expected Outcomes/Goals: Continued good PO intake, weight maintenance, improved GI sx YANN FLORES MD Jul 01, 2024 16:18
[2024-07-01] MEDS ORDERED: ASPI-543 PO (16:36)
[2024-07-01] MEDS ORDERED: HYDR25TA5 PO (16:36)
[2024-07-01] MEDS ORDERED: ATOR20TA50 PO (16:36)
[2024-07-01] MEDS ORDERED: SUCR1TAB PO (16:36)
[2024-07-01] MEDS ORDERED: GABA-1250 PO (16:36)
[2024-07-01] MEDS ORDERED: CLON0.1T PO (16:36)
[2024-07-01] MEDS ORDERED: VALS160T82 OR (16:36)
[2024-07-01] MEDS ORDERED: VALS1TAB57 PO (16:36)
[2024-07-01] MEDS ORDERED: PANT40TA2 PO (16:43)
[2024-07-01] MEDS ORDERED: BUPR150T8 PO (16:43)
== END 2024-07-01 17:45 | disposition home or self-care (01) | DRG 445 ==
LOC: TELE-WESTW 20:27 → WEST WING 23:51
PROVIDERS: ADMIT Hospitalist; ATTEND Hospitalist
PROC: 0DB68ZX Excision of Stomach, Via Natural or Artificial Opening Endoscopic, Diagnostic (ICD-10-PCS; 2024-07-01)
PROC: 0DB98ZX Excision of Duodenum, Via Natural or Artificial Opening Endoscopic, Diagnostic (ICD-10-PCS; principal; 2024-07-01 13:26)
DX: K80.20 Calculus of gallbladder without cholecystitis without obstruction (principal); F11.20 Opioid dependence, uncomplicated; K25.9 Gastric ulcer, unspecified as acute or chronic, without hemorrhage or perforation; K57.30 Diverticulosis of large intestine without perforation or abscess without bleeding; E86.1 Hypovolemia; E87.6 Hypokalemia; J44.9 Chronic obstructive pulmonary disease, unspecified; K21.9 Gastro-esophageal reflux disease without esophagitis; I71.40 Abdominal aortic aneurysm, without rupture, unspecified; E78.00 Pure hypercholesterolemia, unspecified; F32.A Depression, unspecified; F41.9 Anxiety disorder, unspecified; K44.9 Diaphragmatic hernia without obstruction or gangrene; M10.9 Gout, unspecified; G89.29 Other chronic pain; M54.9 Dorsalgia, unspecified; I10 Essential (primary) hypertension; K59.00 Constipation, unspecified; Z87.891 Personal history of nicotine dependence; Z86.79 Personal history of other diseases of the circulatory system; Z79.899 Other long term (current) drug therapy
CPT/HCPCS: 36415; 73630; 74177; 76705; 80053; 80061; 81001; 82150; 82270; 82607; 82746; 83036; 83735; 84100; 84550; 85025; 85610; 85652; 85730; G0378; J1100; J1885; J2250; J2405; J2470; J2704; J3480; J3490